=== PATIENT | male | born 1930 | race Caucasian/White ===

== ENCOUNTER → 2018-02-27 | Emergency (ER) | payer OTHER ==
[~2018-02-27] VITALS: Ht 177.8 cm; Wt 70.3 kg
[~2018-02-27] MED LIST: ASA81 MG; AVODART0.5 MG; NORVASC5 MG; NORVASC5 MG PO; RAPAFLO8 MG PO; RELAFEN500 MG PO; SEPTRA DS TABLE1 TAB PO; TENORMIN25 MG; TENORMIN25 MG PO; ZOCOR20 MG; ZOCOR40 MG PO
== END | disposition left against medical advice (07) ==
LOC: ER 00:53
DX: Z53.20 Procedure and treatment not carried out because of patient's decision for unspecified reasons (principal)

== ENCOUNTER → 2020-05-29 | Emergency (ER) | payer OTHER ==
[~2020-05-29] VITALS: Ht 177.8 cm; Wt 70.3 kg
[~2020-05-29] MED LIST changes: +FINASTERIDE5 MG; +NASAL MIST126 ML
== END | disposition home or self-care (01) ==
LOC: ER 12:09
DX: I73.89 Other specified peripheral vascular diseases (principal); R22.31 Localized swelling, mass and lump, right upper limb